=== PATIENT | male | born 1995 | race Caucasian/White ===

== ENCOUNTER 2016-10-25 13:41 | Emergency (ER) | payer MEDICAID, OTHER ==
[~2016-10-25] VITALS: Ht 78.7 cm; Wt 70.8 kg
[~2016-10-25 13:41] MED LIST: DOXY100T PO; SULF-154 PO; Z.0.NO CURRENT MEDS
[2016-10-25 13:55] VITALS: BP 123/57; PULSE 50; RESP 20; TEMP 97.8; O2SAT 98
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
--- NOTE | 2016-10-25 15:10 | PD ---
HPI Chief Complaint: Injury Time Seen by Provider: 15:04 Travel History International Travel<30 days: No Contact w/Intl Traveler<30days: No Traveled to known affect area: No History of Present Illness HPI 20-year-old male presents the emergency department with injury to the left wrist. X-rays were performed out of triage and he is found to have a triquetral fracture to the left wrist. Patient states his pain is minimal only worse with movement. He denies any other injury. He has no known drug allergies [facility] Past Medical History Medical History: Denies Significant Hx Diminished Hearing: No Immunizations Current: Yes Tetanus Vaccination: > 5 Years Influenza Vaccination: No Past Surgical History Surgical History: No Previous Surgery Social History Alcohol Use: No Tobacco Use: Yes (VAPOR) Substance Use: No Allergies-Medications (Allergen,Severity, Reaction): Coded Allergies: No Known Allergies (Verified , 10/25/16) Reported Meds & Prescriptions Reported Meds & Active Scripts Active No Active Prescriptions or Reported Medications Review of Systems Except as stated in HPI: all other systems reviewed are Neg General / Constitutional: No: Fever Eyes: No: Visual changes HENT: No: Headaches Cardiovascular: No: Chest Pain or Discomfort Respiratory: No: Shortness of Breath Gastrointestinal: No: Abdominal Pain Genitourinary: No: Dysuria Musculoskeletal: No: Pain Skin: No Rash Neurologic: No: Weakness Psychiatric: No: Depression Endocrine: No: Polydipsia Hematologic/Lymphatic: No: Easy Bruising Physical Exam Narrative GENERAL: Patient is in no acute distress. SKIN: Warm and dry. Normal color. Normal turgor. HEAD: Atraumatic. Normocephalic. EYES: Pupils equal and round. No scleral icterus. No injection or drainage. ENT: No nasal bleeding or discharge. Mucous membranes pink and moist. NECK: Trachea midline. No JVD. CARDIOVASCULAR: Regular rate and rhythm. RESPIRATORY: No accessory muscle use. Clear to auscultation. Breath sounds equal bilaterally. MUSCULOSKELETAL: Extremities without clubbing, cyanosis, or edema. Patient has obvious swelling over the dorsal left wrist. Vascular exam is intact distally. Range of motion is limited secondary to pain. NEUROLOGICAL: Awake and alert. No obvious cranial nerve deficits. Motor grossly within normal limits. Five out of 5 muscle strength in the arms and legs. Normal speech. PSYCHIATRIC: Appropriate mood and affect; insight and judgment normal. Data Data Last Documented VS Vital Signs Date Time Temp Pulse Resp B/P (MAP) Pulse Ox O2 Delivery O2 Flow Rate FiO2 10/25/16 13:55 97.8 50 20 123/57 (79) 98 Orders Orders Hand, Complete ([id number]) (10/25/16 ) Wrist, Complete ([id number]) (10/25/16 ) Splint Or Brace Apply/Monitor (10/25/16 15:05) MDM Medical Decision Making Medical Screen Exam Complete: Yes Emergency Medical Condition: Yes Differential Diagnosis Left wrist sprain. Left wrist pain. Left wrist fracture. Narrative Course Patient has a triquetral fracture of the left wrist per radiologist. Patient is placed in a sugar tong splint and sling by division order technician. Patient is to use ice, Tylenol, ibuprofen, and rest. Splint and sling is to remain in place until seen by orthopedist. Call for appointment with Dr. Lewis as soon as possible. Patient follow-up as needed. Diagnosis Primary Impression: Fracture of triquetrum of left wrist Qualified Codes: S62.115A - Nondisplaced fracture of triquetrum [cuneiform] bone, left wrist, initial encounter for closed fracture Referrals: Travis Mesa MD call for appointment Patient Instructions: General Instructions, How to Use a Sling (GEN), Splint Care (ED), Wrist Fracture in Adults (DC) Additional Instructions: Patient has a triquetral fracture of the left wrist per radiologist. Patient is placed in a sugar tong splint and sling by division order technician. Patient is to use ice, Tylenol, ibuprofen, and rest. Splint and sling is to remain in place until seen by orthopedist. Call for appointment with Dr. Lewis as soon as possible. Patient follow-up as needed. Med/Other Pt SpecificInfo: Prescription(s) given Scripts No Active Prescriptions or Reported Meds Disposition: 01 DISCHARGE HOME Condition: Stable Sher Mcneal Oct 25, 2016 15:10
== END 2016-10-25 15:49 | disposition home or self-care (01) ==
LOC: PHED 13:41
DX: S62.115A Nondisplaced fracture of triquetrum [cuneiform] bone, left wrist, initial encounter for closed fracture (principal); X58.XXXA Exposure to other specified factors, initial encounter
CPT/HCPCS: 29125; 73110; 73130